=== PATIENT | male | born 1960 | race African-American/Black ===

== ENCOUNTER 2018-12-01 18:48 | Emergency (ER) | payer SELFPAY ==
[~2018-12-01] VITALS: Ht 182.9 cm; Wt 88.4 kg
[~2018-12-01 18:48] MED LIST: ACET-818 PO; CEPH-443 PO; LEVO50TA89 PO; LISI10TA2 PO
[2018-12-01 18:55] VITALS: Ht 182.9 cm; Wt 88.4 kg
[2018-12-01] MEDS ORDERED: SOD CHLORIDE 0.9% 1,000 ML IV STA (22:02)
--- NOTE | 2018-12-01 22:12 | ERD ---
ER Documentation Chief Complaint Chief Complaint Dizziness, N/V, "head is spinning" X 10 hrs HPI Very pleasant 58-year-old gentleman who presents to the emergency room with dizziness this morning. He states that ever since he woke up this morning he has had dizziness like a room spinning sensation that is sudden in onset worse with head movement and standing up. He describes associated nonbloody nonbilious emesis. Occasional headaches that are mild and throbbing and gradual in onset. No slurred speech ataxia or dysmetria. ROS All systems reviewed and are negative except as per history of present illness. Medications Home Meds Reported Medications Acetaminophen-Codeine* (Tylenol No.3*) 1 Tab Tab, 1 TAB PO PRN 01/11/12 Cephalexin* (Keflex*) 500 Mg Capsule, 500 MG PO Q6 01/11/12 Levothyroxine Sodium* (Synthroid*) 50 Mcg Tablet, 50 MCG PO DAILY 01/11/12 Lisinopril* (Lisinopril*) 10 Mg Tablet, 10 MG PO DAILY 01/11/12 Allergies Allergies: Coded Allergies: No Known Allergy (Unverified , 01/11/12) PMhx/Soc History of Surgery: Yes (RT THIGH SURGERY) Anesthesia Reaction: No Hx Neurological Disorder: No Hx Respiratory Disorders: No Hx Cardiac Disorders: No Hx Psychiatric Problems: No Hx Miscellaneous Medical Probl: No Hx Alcohol Use: No Hx Substance Use: No Hx Tobacco Use: No FmHx Family History: No diabetes Physical Exam Vitals Vital Signs Date Temp Pulse Resp B/P (MAP) Pulse Ox O2 O2 Flow FiO2 Time Delivery Rate 12/01/18 97.2 88 18 174/92 98 18:55 (119) Physical Exam General: Well developed, well nourished, no acute distress Head: Normocephalic, atraumatic. Eyes: Pupils equally reactive, EOM intact, nystagmus as documented below ENT: Moist mucous membranes Neck: Supple, no lymphadenopathy Respiratory: Lungs clear bilaterally, no distress Cardiovascular: RRR, no murmurs, rubs, or gallops Abdominal: Soft, non-tender, non-distended, no peritoneal signs : Deferred MSK: No edema, no unilateral swelling, 5/5 strength Neurologic: Alert and oriented, moving all extremities, normal speech, no focal weakness, no cerebellar signs reproducible horizontal nystagmus noted worse with right gaze. No vertical nystagmus or rotary nystagmus, normal rapid alternating movements, no ataxia Skin: No rash Psych: Normal mood Results 24 hrs Current Medications Medications Dose Sig/Jim Start Time Status Last (Trade) Ordered Route PRN Stop Time Admin Dose Reason Admin Sodium 1,000 ml @ Q1H STAT 12/01/18 Chloride 1,000 mls/hr IV 22:02 12/01/18 23:01 Lorazepam 0.5 mg ONCE ONCE 12/01/18 (Ativan) IV 22:30 12/01/18 22:31 Meclizine 25 mg ONCE ONCE 12/01/18 HCl PO 22:30 (Antivert) 12/01/18 22:31 Procedures/MDM EKG, MONITORS, & DIAGNOSTIC IMAGING: EKG: I reviewed and interpreted a 12-lead EKG. Rhythm: Normal sinus rhythm ST Changes: No contiguous ST segment elevations T waves: No contiguous T wave inversions Impression: [No evidence of acute cardiac ischemia] CT brain: [] LAB INTERPRETATION: I reviewed the laboratory testing and it shows [no evidence of acute process] MEDICAL DECISION MAKING: Patient presents with reproducible vertigo with horizontal nystagmus very consistent with benign positional vertigo. However the patient is 58 years old complaining of a mild headache. CT to rule out mass would be appropriate. Lower concern for anemia or cardiac etiology such as arrhythmia. No signs of chest pressure or chest pain that would be concerning for acute coronary syndrome. Patient will benefit from reassurance, laboratory and diagnostic screening and outpatient primary care follow-up. He exhibits no signs or symptoms concerning for central vertigo that would warrant MRI or inpatient hospitalization. ER COURSE: * IV fluids Ativan and meclizine provided * [] CONSULTATION: [None] DISPOSITION PLAN: [] HAL EWING MD Dec 01, 2018 22:12
[2018-12-01] MEDS ORDERED: MECLIZINE 12.5 MG TAB PO ONE (22:30)
[2018-12-01] MEDS ORDERED: LORAZEPAM 2 MG INJ IV ONE (22:30)
[2018-12-01] MEDS ORDERED: MECL-77 PO (23:44)
[2018-12-01 23:53] VITALS: BP 170/98; PULSE 86; RESP 16
== END 2018-12-02 00:03 | disposition home or self-care (01) ==
LOC: E/R 18:48
DX: H81.10 Benign paroxysmal vertigo, unspecified ear (principal); R40.2142 Coma scale, eyes open, spontaneous, at arrival to emergency department; R40.2252 Coma scale, best verbal response, oriented, at arrival to emergency department; R40.2362 Coma scale, best motor response, obeys commands, at arrival to emergency department
CPT/HCPCS: 36415; 70450; 80048; 85025; 93005; 96374; 99285; J2060; J7030